=== PATIENT | female | born 1945 | race Caucasian/White ===

== ENCOUNTER 2018-04-15 10:25 | Inpatient (IN) | payer MEDICARE ==
[2018-04-15] MEDS ORDERED: DOPamine 400 MG/D5W 250 ML 250 ML ONE (10:34)
[2018-04-15] MEDS ORDERED: Fentanyl 100 MCG/2 ML VIAL ONE (10:38)
[2018-04-15] MEDS ORDERED: Lorazepam 2 MG/ML VIAL ONE (10:42)
[2018-04-15 11:00] LABS: #Basophils 0.1 thou/uL (0.0-0.2); #Lymphocytes 0.9 thou/uL (1.20-3.40); #Monocytes 0.3 thou/uL (0.11-0.59); %Basophils 0.5 % (0.0-1.0); %Eosinophils 0.2 % (0.0-10.0); %Lymphocytes 8.3 % (21.0-51.0); %Monocytes 2.2 % (0.0-10.0); %Neutrophils 88.8 % (42.0-75.0); Hemoglobin 14.2 g/dL (12.0-16.0); Mean Corpuscular HGB CONC 33.4 g/dL (32.0-36.0); Mean Corpuscular Hemoglobin 31.3 pg (27.0-31.0); Mean Corpuscular Volume 93.8 fL (78.0-98.0); Mean Platelet Volume 9.8 fL (7.4-10.4); Platelet Count 165 thou/uL (130-400); RBC Distribution Width 12.1 % (11.5-14.5); Red Blood Cell (RBC) Count 4.54 mill/uL (4.20-5.40); White Blood Cell (WBC) Count 11.2 thou/uL (4.8-10.8)
[2018-04-15 11:09] LABS: INR-International Normal Ratio 1.1; PTT 28.7 SEC (22.9-36.1); Prothrombin Time 14.3 SEC (12.0-14.7)
[2018-04-15 11:22] LABS: ALT (SGPT) 58 U/L (8-55); AST (SGOT) 43 U/L (5-34); Albumin 4.1 g/dL (3.4-4.8); Alkaline Phosphatase 122 U/L (40-150); Anion Gap 23 mmol/L (10-20); BUN (Urea Nitrogen) 29 mg/dL (9.8-20.1); Bilirubin, Total 0.5 mg/dL (0.2-1.2); Calc. Creatinine Clearance 0 mL/min (70-130); Calcium 10.2 mg/dL (7.8-10.44); Carbon Dioxide 16 mmol/L (23-31); Cardiac Risk 2.6 (Less than 4.5); Chloride 107 mmol/L (98-107); Cholesterol 119 mg/dl (< 200 Desired); Estimated GFR-MDRD 43; Globulin 3.1 g/dL (2.4-3.5); Glucose 242 mg/dL (83-110); HDL Cholesterol 46 mg/dL (>60 Neg Risk); LDL Cholesterol, Calculated 56 mg/dL; Protein, Total 7.2 g/dL (6.0-8.3); Sodium 141 mmol/L (136-145); Triglycerides 84 mg/dL (Less than 150)
[2018-04-15 11:37] LABS: CKMB 1.7 ng/mL (0-6.6)
--- NOTE | 2018-04-15 12:06 | RAD ---
PORTABLE CHEST 1 VIEW: Date: 04/15/18 Time: 1118 hours HISTORY: Heart block, bradycardia. FINDINGS: The heart size is borderline. The lungs are well expanded without focal areas of consolidation, pneum othorax, sharon pulmonary edema, or pleural effusions. IMPRESSION: No acute process. POS: ERNIEH
[2018-04-15] MEDS ORDERED: Ondansetron ODT 4 MG TAB SL PRN (12:47)
[2018-04-15] MEDS ORDERED: Acetaminophen 325 MG TAB PO PRN (12:47)
[2018-04-15] MEDS ORDERED: Ondansetron PF 4 MG/2 ML Vial IVP PRN ×2 (12:47→12:59)
[2018-04-15] MEDS ORDERED: HumaLOG 300 UNITS/3 ML VIAL SC PRN (12:59)
[2018-04-15] MEDS ORDERED: HYDROcodone/Acetaminophen 5/325 mg Tablet PO PRN (12:59)
[2018-04-15] MEDS ORDERED: Dextrose 5% in Water 1,000 ML IV PRN (12:59)
[2018-04-15] MEDS ORDERED: Bisacodyl 10 MG SUPP PR PRN (12:59)
[2018-04-15] MEDS ORDERED: Dextrose 50% Abboject 50 ML SYRINGE SLOW IVP PRN (12:59)
[2018-04-15] MEDS ORDERED: Zolpidem Tartrate 5 MG TAB PO PRN (12:59)
[2018-04-15 13:23] VITALS: BMI 27.1
--- NOTE | 2018-04-15 13:39 | CON ---
DATE OF CONSULTATION: HISTORY: Debby Garcia is a 72-year-old white female, who went to the [facility] emergency Room today with passing-out spells and seizures. 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 Vic Roberts. She also has history of hypertensive encephalopathy and intracranial left-sided ventricular hemorrhage in August of 2011 that was treated conservatively. She states she has never had any cardiac problems previously. She denied any chest pain or shortness of breath. Over the last several days, apparently, she has had passing-out spells and seizures. She went to the emergency room in [facility], was found to be in complete heart block with junctional escape rhythm with right bundle-branch block pattern. Heart rate was 25 per minute. She was transferred here, and is on a dopamine drip. In the emergency room, she apparently had an episode of asystole. Output was increased from the transcutaneous pacer. Currently, she is pacing around 60 per minute. PAST MEDICAL HISTORY: Hypertension, diabetes, hypercholesterolemia, and history of CVA. MEDICATIONS: Atorvastatin 40 daily, calcium citrate, carvedilol 12.5 mg b.i.d., levothyroxine 75 mcg daily, lisinopril 20 mg daily, magnesium, metformin 500 mg b.i.d., and sertraline 50 daily. ALLERGIES: NONE. OPERATIONS: Left carotid endarterectomy, left total knee replacement, appendectomy, cataract extraction, lumbar laminectomy, and oophorectomy. SOCIAL HISTORY: She stopped smoking many years ago. She does not drink. FAMILY HISTORY: Unremarkable for coronary artery disease. REVIEW OF SYSTEMS: A 12-point review of systems unremarkable. PHYSICAL EXAMINATION: VITAL SIGNS: Blood pressure 110/70, transcutaneously paced. HEENT: PERRL. NECK: Supple. CHEST: Clear. CARDIAC: S1 and S2 are normal. No murmurs. ABDOMEN: Normal bowel sounds without tenderness or organomegaly. EXTREMITIES: Revealed trace pretibial edema. NEUROLOGIC: Grossly intact. SKIN: Warm and dry. LABORATORY DATA: Laboratory from [facility] revealed hemoglobin 13.7, hematocrit 41.9, white count 11,700, and platelets 110,000. I do not see any electrolytes. IMPRESSION: 1. Complete heart block. 2. Episodes of syncope associated with seizure secondary to #1. 3. Atherosclerotic peripheral vascular disease, status post left carotid endarterectomy. 4. Hypertension. 5. Diabetes. 6. Hypercholesterolemia. 7. Distant smoker. PLAN: An attempt will be made to obtain the remainder of her lab work from [facility]. It was recommended that she have a temporary pacemaker placed. Risks of this were discussed with the patient including , bleeding, infection, blood clot formation, bleeding around the heart with tamponade, etc. With her episode of asystole, temporary pacemaker needs to be placed while further evaluation is ongoing to evaluate her left ventricular function and the possibility of myocardial infarction. Job ID: [id number] [facility]
[2018-04-15 13:48] LABS: Troponin I 0.102 ng/mL (< 0.028)
[2018-04-15] MEDS ORDERED: Prevnar 13-Val Conj/PF 0.5 ML SYRINGE IM ONE (14:00)
--- NOTE | 2018-04-15 14:41 | CCL ---
CARDIOLOGY PROCEDURE NOTE: Date: 04/15/18 PROCEDURE: Temporary pacemaker placement. INDICATION: Complete heart block, syncope, and seizures. PROCEDURE DETAILS: The patient was brought to the cardiac laborer tanbark and the right groin was prepped and draped in the usual fashion. 1% lidocaine was infiltrated. A 5 Samoan sheath was placed into the right femoral. A 5 Samoan balloon tipped pacing wire was inserted into the right ventricle. Threshold was less than 1.0 volts. Sensitivity was not tested due to her extreme bradycardia. This was sutured in place and the patient was transferred to the ICU. GEORGE
[2018-04-15 16:47] LABS: Troponin I 0.143 ng/mL (< 0.028)
--- NOTE | 2018-04-15 19:29 | HP ---
HISTORY OF PRESENT ILLNESS: Ms. Garcia is a 72-year-old woman. She came to this facility earlier today after she passed out. According to the patient, she had multiple episodes since yesterday and this morning, she also had multiple episodes of seizures. She came to the ER, she was evaluated. She was found to be in complete AV block. Cardiology was consulted and she is being admitted for management. She is a very poor informant at this time. She denies any previous history of kidney disease. PAST MEDICAL HISTORY: She has a history of hypertension, diabetes mellitus, cerebrovascular accident. PAST SURGICAL HISTORY: She had multiple surgeries, which she cannot mention at this time. ALLERGIES: SHE DOES NOT HAVE ANY KNOWN ALLERGY. SOCIAL HISTORY: She does not smoke, does not drink. FAMILY HISTORY: Her family history was reviewed and is noncontributory. REVIEW OF SYSTEMS: Remarkable for syncopal episode and also multiple episode of seizures. In detail, review of system cannot be obtained at this time. The patient cannot give information; however, she mentioned that she had diarrhea over the last few days. At the time of examination, there was no family member available. PHYSICAL EXAMINATION: GENERAL: At the current time, she is alert, responsive, and cooperative, in no acute distress. VITAL SIGNS: Her latest vital signs showed a temperature of 97.5, pulse rate 57, respiratory rate 16, blood pressure 161/60. An external pacemaker was placed. We have to mention that at the time of admission, her pulse rate was 37 and her blood pressure was low. HEENT: Head, normocephalic and atraumatic. Both of her pupils are equal and reactive. Ears and nose are normal. Oral mucosa is moist. Pharyngeal area is clear. NECK: Supple. There is no distention of the jugular vein. No lymphadenopathy felt. Thyroid gland not palpable. There is no carotid bruit. CHEST: Symmetrical, irregular. S1 and S2. LUNGS: Clear. ABDOMEN: Soft. Bowel sounds heard. We could not appreciate any organomegaly. There is no focal area of tenderness. LYMPH: Showed no edema. NEUROLOGICAL: She moves all extremities. LABORATORY STUDIES: CBC done earlier showed a WBC of 11.2, hemoglobin of 14.2, hematocrit of 42.6, MCV of 98.8, platelets of 165. Her PT was noticed to be 14.3, PTT 28.7. Chemistry and lytes show a sodium of 141, potassium of 5, chloride 107, CO2 of 16, BUN 29, creatinine 1.2, glucose 242, AST 43, ALT 58, alkaline phosphatase 122. Troponin was noticed to be 0.042. Total protein 7.2, albumin 4.1, globulin 3.1, triglyceride 84, cholesterol 119, LDL 56, HDL 46. TSH was noticed to be elevated at 9.5814. T4 not available at this time. ASSESSMENT: This is a 72-year-old woman with history of hypertension, diabetes mellitus, who was admitted with syncopal episode associated with multiple episodes of seizure, was found to have complete atrioventricular block. She is scheduled for temporary pacemaker placement internal. Regarding her seizure, it is possible that mostly likely way-out due to brain ischemia associated with heart block; however, this should be evaluated later. Neurology consult will be considered. TSH was noticed to be elevated. We will check a T4 level before starting thyroxine. The patient will be admitted to ICU. Further evaluation and management will depend on her course of the hospitalization and her response to therapy. Cardiology consult was called. Job ID: [id number]
--- NOTE | 2018-04-15 21:53 | CON ---
DATE OF CONSULTATION: NOTE: I discussed with Mrs. Garcia as well as her son by phone the results of the echocardiogram, which showed normal left ventricular function. It was recommended to undergo pacemaker placement tomorrow. Risks of pacemaker insertion were discussed including , infection, bleeding, blood clot formation, tamponade, pneumothorax, re-operation for lead dislodgement, etc. They understand and agreed to proceed. Job ID: [id number]
[2018-04-15] MEDS: Famotidine/PF 20 mg/2ml Vial SLOW IVP SCH (21:57)
[2018-04-15] MEDS: Atorvastatin Calcium 40 MG TAB PO SCH (21:57)
[2018-04-16] MEDS: Sodium Chloride 0.9% 1,000 ML IV SCH ×2 (02:12→18:50)
[2018-04-16 05:10] LABS: #Basophils 0.1 thou/uL (0.0-0.2); #Lymphocytes 1.5 thou/uL (1.20-3.40); #Monocytes 0.7 thou/uL (0.11-0.59); #Neutrophils 8.5 thou/uL (1.40-6.50); %Basophils 0.7 % (0.0-1.0); %Eosinophils 0.5 % (0.0-10.0); %Lymphocytes 13.6 % (21.0-51.0); %Monocytes 6.3 % (0.0-10.0); Hemoglobin 12.9 g/dL (12.0-16.0); Mean Corpuscular HGB CONC 33.3 g/dL (32.0-36.0); Mean Corpuscular Hemoglobin 30.9 pg (27.0-31.0); Mean Corpuscular Volume 92.9 fL (78.0-98.0); Platelet Count 161 thou/uL (130-400); RBC Distribution Width 12.2 % (11.5-14.5); Red Blood Cell (RBC) Count 4.18 mill/uL (4.20-5.40); White Blood Cell (WBC) Count 10.8 thou/uL (4.8-10.8)
[2018-04-16 05:27] LABS: Anion Gap 15 mmol/L (10-20); BUN (Urea Nitrogen) 19 mg/dL (9.8-20.1); Calc. Creatinine Clearance 65 mL/min (70-130); Calcium 8.9 mg/dL (7.8-10.44); Carbon Dioxide 21 mmol/L (23-31); Chloride 106 mmol/L (98-107); Estimated GFR-MDRD 64; Glucose 125 mg/dL (83-110); Potassium 3.6 mmol/L (3.5-5.1); Sodium 138 mmol/L (136-145)
[2018-04-16] MEDS: Famotidine/PF 20 mg/2ml Vial SLOW IVP SCH ×2 (08:39→20:53)
--- NOTE | 2018-04-16 09:24 | RAD ---
PORTABLE CHEST 1 VIEW: Date: 04/16/18 Time: 0523 hours HISTORY: Heart block, bradycardia. FINDINGS: Comparison made with exam from previous day. The heart size is normal. The aorta is tortuous. The lungs are well expanded without focal areas of c onsolidation, pneumothorax, sharon pulmonary edema, or pleural effusions. IMPRESSION: No acute process. POS: ERNIE
--- NOTE | 2018-04-16 11:40 | CON ---
DATE OF CONSULTATION: 04/16/2018 SERVICE: Pulmonary Medicine. REASON FOR CONSULTATION: ICU patient. HISTORY OF PRESENT ILLNESS: The patient is a 72-year-old white female with past medical history significant for essentially nothing. She presented to the hospital with a 1-day history of syncopal events that resulted in seizure-like activity. She had multiple of these events [id number]. She was brought to the Emergency Department, where she was discovered to have a complete heart block. Transvenous pacing was established. Since then, she had no additional events. Otherwise, there has been no interval change to her condition. She is on line for pacemaker at some point today. During that catheterization, she is also going to undergo cardiac catheterization to investigate the coronary calcifications. PAST MEDICAL HISTORY: 1. Type 2 diabetes mellitus. 2. Hypertension. 3. CVA. 4. History of complete heart block. PAST SURGICAL HISTORY: Unknown. SOCIAL HISTORY: Negative for alcohol, tobacco, or illicit drug use. She has no exposure to chemicals, dust, asbestos, or tuberculosis. FAMILY HISTORY: Noncontributory. ALLERGIES: NO KNOWN DRUG ALLERGIES. MEDICATIONS: List of her inpatient medications was reviewed. No specific updates were made at this time. REVIEW OF SYSTEMS: General, head, ears, eyes, nose, throat, cardiovascular, respiratory, GI, , musculoskeletal, neurologic, and skin is negative except as mentioned in the HPI. PHYSICAL EXAMINATION: VITAL SIGNS: Afebrile, pulse 84, blood pressure 164/75, respirations 15, saturation 98% on 1 L nasal cannula. GENERAL: The patient is awake and alert, in no apparent distress. LUNGS: Excellent air entry with no prolonged expiratory phase. Minimal dependent crackles are noted. There are no rhonchi or wheezing. HEART: Normal rate. Regular. She is 100% paced. : No [place]. NEUROLOGIC: Grossly nonfocal. MUSCULOSKELETAL: No cyanosis or clubbing. There is no pitting in the bilateral lower extremities. LABORATORY DATA: WBC 10.8, hemoglobin 12.9, and platelets 161,000. INR 1.1. Basic metabolic profile is unremarkable with a downtrending creatinine of 0.87. Troponin 0.143 and gently up-trending. Liver function studies include a minimally-elevated AST and ALT. Liver function studies are otherwise unremarkable. ASSESSMENT: 1. Acute hypoxic respiratory failure, minimal. 2. Complete heart block, status post transvenous pacing. 3. Acute kidney injury, resolving. 4. Spells characterized by movement disorder, likely seizures, resolved. 5. Acute heart failure, resolved. 6. [id number] myocardial infarction. DISCUSSION AND PLAN: The patient is going down for a cardiac catheterization and pacemaker placement. Pulmonary/Critical Care will continue to follow while the patient remains in this location. Once the pacemaker is placed, she will be a candidate for transition out of the ICU to the Telemetry unit, if Cardiology is okay with that. Pulmonary will continue to follow in this location. Job ID: [id number]
--- NOTE | 2018-04-16 12:56 | PDOC.PN ---
- Subjective Encounter Start Date: 04/16/18 Encounter Start Time: 12:55 Subjective: right lower leg discomfort with external pacemaker - Objective Resuscitation Status - Order Detail: 04/15/18 11:38 Resuscitation Status Routine Resuscitation Status: FULL: Full Resuscitation MAR Reviewed: Yes Vital Signs & Weight: Vital Signs (12 hours) Temp Pulse Ox 04/16/18 11:00 98.2 F 04/16/18 08:00 98 04/16/18 07:00 98.1 F 04/16/18 04:00 98.3 F Weight Weight 153 lb 3.54 oz Most Recent Monitor Data Heart Rate from ECG 81 NIBP 151/78 NIBP BP-Mean 102 Respiration from ECG 16 SpO2 98 I&O: 04/15/18 04/16/18 04/17/18 06:59 06:59 06:59 Intake Total 1249 Output Total 770 350 Balance 479 -350 Result Diagrams: 04/16/18 04:47 04/16/18 04:47 Additional Labs: Accuchecks 04/16/18 04/15/18 12:09 17:03 POC Glucose 126 H 119 H Phys Exam - Physical Examination HEENT: PERRLA, moist MMs, sclera anicteric, TM's clear, oral pharynx no lesions , 2+ tonsils Neck: no nodes, no JVD, supple, full ROM Respiratory: no wheezing, no rales Cardiovascular: RRR, no significant murmur, no rub Gastrointestinal: soft, non-tender, no distention, positive bowel sounds right groin with extrenal pacemaker Neurological: non-focal, normal sensation, moves all 4 limbs Psychiatric: normal affect, A&O x 3 Skin: no rash, normal turgor, cap refill <2 seconds Dx/Plan (1) Complete AV block Code(s): I44.2 - ATRIOVENTRICULAR BLOCK, COMPLETE Status: Acute Comment: patient with external pacemaker, going in for permanent pacemaker today (2) Diabetes Code(s): E11.9 - TYPE 2 DIABETES MELLITUS WITHOUT COMPLICATIONS Status: Acute Comment: NPO today, hold all home meds - Plan cont current plan of care, plan discussed w/ family * .
[2018-04-16] MEDS ORDERED: CEFAZOLIN 1 GM VIAL ONE (13:00)
[2018-04-16] MEDS ORDERED: Gentamicin 80 MG/2 ML VIAL ONE (13:00)
[2018-04-16] MEDS ORDERED: CEFAZOLIN 2 GM/50 ML BAG ONE (13:00)
[2018-04-16] MEDS ORDERED: Lidocaine 1% (PF) 30 ML VIAL ONE (16:05)
[2018-04-16] MEDS ORDERED: Midazolam HCl 2 mg/2 ml Vial ONE ×2 (16:05→17:07)
[2018-04-16] MEDS ORDERED: Fentanyl 100 MCG/2 ML VIAL ONE (16:05)
[2018-04-16] MEDS ORDERED: Lisinopril 10 MG TAB PO SCH (17:45)
[2018-04-16] MEDS ORDERED: Carvedilol 6.25 MG TAB PO SCH (18:30)
[2018-04-16] MEDS: Aspirin 81 mg Enteric Coated Tablet PO SCH (18:39)
[2018-04-16] MEDS: Cephalexin 250 MG CAP PO SCH (20:53)
[2018-04-16] MEDS: Atorvastatin Calcium 40 MG TAB PO SCH (20:53)
--- NOTE | 2018-04-16 21:05 | RAD ---
SINGLE VIEW OF THE CHEST: Comparison: 04-16-18 History: Status post pacemaker placement. FINDINGS: Single view of the chest shows a normal sized cardiomediastinal silhouette. A left subclavian pacemak er is seen with its leads in the right atrium and ventricles. There is no evidence of consolidation, mass, pneumothorax or pleural effusion. IMPRESSION: 1. No evidence of acute cardiopulmonary disease. 2. Status post pacemaker placement without evidence of complications. POS: MORGAN
[2018-04-16] MEDS: Acetaminophen 325 MG TAB PO PRN (22:36)
[2018-04-16 23:57] LABS: Troponin I 0.531 ng/mL (< 0.028)
[2018-04-17] MEDS ORDERED: Sodium Chloride 0.9% 500 ML IV SCH (02:00)
[2018-04-17] MEDS: Sodium Chloride 0.9% 1,000 ML IV SCH ×2 (02:33→14:21)
[2018-04-17 06:24] LABS: ALT (SGPT) 23 U/L (8-55); AST (SGOT) 16 U/L (5-34); Albumin 3.2 g/dL (3.4-4.8); Alkaline Phosphatase 85 U/L (40-150); Anion Gap 11 mmol/L (10-20); BUN (Urea Nitrogen) 14 mg/dL (9.8-20.1); Bilirubin, Total 0.7 mg/dL (0.2-1.2); Calc. Creatinine Clearance 56 mL/min (70-130); Calcium 8.4 mg/dL (7.8-10.44); Carbon Dioxide 25 mmol/L (23-31); Chloride 107 mmol/L (98-107); Estimated GFR-MDRD 57; Globulin 2.4 g/dL (2.4-3.5); Glucose 104 mg/dL (83-110); Potassium 3.6 mmol/L (3.5-5.1); Protein, Total 5.6 g/dL (6.0-8.3); Sodium 139 mmol/L (136-145)
[2018-04-17] MEDS ORDERED: Carvedilol 6.25 MG TAB PO SCH (08:00)
[2018-04-17] MEDS ORDERED: Lisinopril 20 MG TAB PO SCH (09:00)
[2018-04-17] MEDS: Cephalexin 250 MG CAP PO SCH ×3 (09:15→20:13)
[2018-04-17] MEDS: Aspirin 81 mg Enteric Coated Tablet PO SCH (09:15)
[2018-04-17] MEDS: Famotidine/PF 20 mg/2ml Vial SLOW IVP SCH ×2 (09:15→20:12)
[2018-04-17] MEDS: Carvedilol 6.25 MG TAB PO SCH (09:15)
[2018-04-17] MEDS: Acetaminophen 325 MG TAB PO PRN (09:28)
[2018-04-17] MEDS ORDERED: Sodium Chloride 0.9% 1,000 ML IV SCH (11:15)
--- NOTE | 2018-04-17 15:13 | CCL ---
CARDIOLOGY PROCEDURE NOTE: Date: 04/16/18 PROCEDURE: Permanent pacemaker placement. INDICATION: Complete heart block, syncope, and seizures. DETAILS: The patient was brought to the cardiac solder making laborer and the left subclavian area was prepped and draped. 1% lidocaine was infiltrated. A J-wire was placed into the left subclavian vein. Pacemaker pocket was manufactured using blunt and sharp dissection with electrocautery for hemostasis. An antibiotic solu tion-soaked gauze was placed into the pocket. Using a 9 Spanish sheath, the ventricular lead was inser nelida with the J-wire remaining in place. The sheath was peeled away. Then, a 7 Spanish sheath was used to place the atrial lead. The right ventricular lead was advanced to the RV apex and screwed into the apex. The right atrial lead was screwed into the right atrium. Ventricular Lead: R-wave 3.4 (paced), impedance 826, threshold 0.5. Right Atrial Lead: P-wave 5.9, impedance 662, threshold 1.6 volts. During the procedure, the patient received several doses of IV Versed and Fentanyl. She was extremely uncooperative during the procedure, frequently cussing at the staff, and moving her arms and legs. T he tabs on the suture tie-down were removed and both leads were secured in place with two sutures of 0 silk. The antibiotic solution soaked gauze was removed. Subcutaneous pocket was irrigated using commercial helicopter pilot ious amounts of antibiotic solution. Leads were attached to the pacemaker generator and this was plac ed into the pocket and secured in place with one suture of 0 silk. Incision was then closed using two layers of running 3-0 Vicryl and one layer of running 4-0 Vicryl. Dermabond was placed on the incisi on.
--- NOTE | 2018-04-17 16:56 | PRG ---
DATE OF SERVICE: 04/17/2018 SUBJECTIVE: Debby Garcia has no complaints. Her pacer is in place. OBJECTIVE: VITAL SIGNS: She is afebrile. Heart rate 68, respiratory rate is 18, blood pressure 102/54. She is on room air, oximetry is 98. LUNGS: Clear. HEART: Regular rhythm. ABDOMEN: Soft. Her pacemaker site is a little tender, but not erythematous. Electrolytes are normal today. Creatinine is 0.97. Intake and outputs negative 559. Chest radiograph showed no pneumothorax yesterday after pacemaker was placed. IMPRESSION: 1. Status post syncope triggered by bradycardia. She has a pacemaker in place. 2. History of diabetes. 3. History of hypertension. 4. History of cerebrovascular accident in the past. She appears to be stable at this point in time. Echocardiogram done 2 days ago shows normal systolic function, normal left ventricular function. I met with her son and answered all of his questions. Job ID: [id number]
[2018-04-17] MEDS: Atorvastatin Calcium 40 MG TAB PO SCH (20:12)
[2018-04-18] MEDS: Acetaminophen 325 MG TAB PO PRN (05:39)
--- NOTE | 2018-04-18 05:45 | PDOC.PN ---
- Subjective Encounter Start Date: 04/17/18 Encounter Start Time: 05:44 Subjective: Feeling weak and left arm pain with pacemaker insertion - Objective Resuscitation Status - Order Detail: 04/15/18 11:38 Resuscitation Status Routine Resuscitation Status: FULL: Full Resuscitation Vital Signs & Weight: Vital Signs (12 hours) Temp Pulse Resp BP Pulse Ox 04/18/18 04:00 99.3 F 70 20 171/78 H 96 04/18/18 00:00 98.0 F 76 18 181/76 H 97 04/17/18 20:00 98.5 F 71 16 177/84 H 95 Weight Weight 146 lb 1.6 oz Most Recent Monitor Data Heart Rate from ECG 80 NIBP 174/89 NIBP BP-Mean 117 Respiration from ECG 22 SpO2 96 I&O: 04/16/18 04/17/18 04/18/18 06:59 06:59 06:59 Intake Total 8594 267 0661 Output Total 770 1300 Balance 479 -223 6610 Result Diagrams: 04/16/18 04:47 04/17/18 05:24 Additional Labs: Accuchecks 04/17/18 04/17/18 04/17/18 20:35 17:05 11:53 POC Glucose 129 H 106 241 H 04/17/18 05:18 POC Glucose 98 Phys Exam - Physical Examination in distress HEENT: PERRLA, moist MMs, sclera anicteric, TM's clear, oral pharynx no lesions , 2+ tonsils Neck: no nodes, no JVD, supple, full ROM Respiratory: no wheezing, no rales Cardiovascular: RRR pacemaker insertion site, healing well Gastrointestinal: soft, non-tender, no distention, positive bowel sounds Musculoskeletal: no edema, pulses present Neurological: non-focal, normal sensation, moves all 4 limbs Psychiatric: normal affect, A&O x 3 Dx/Plan (1) Complete AV block Code(s): I44.2 - ATRIOVENTRICULAR BLOCK, COMPLETE Status: Acute Comment: S/ P permanent pacemaker today (2) Diabetes Code(s): E11.9 - TYPE 2 DIABETES MELLITUS WITHOUT COMPLICATIONS Status: Acute Comment: Continue home meds (3) Hypotension Status: Acute - Plan cont current plan of care, plan discussed w/ family, DVT proph w/SCDs Discharge once BP is more stable, hold or reduce medicines if required. * .
[2018-04-18 05:51] LABS: Anion Gap 12 mmol/L (10-20); BUN (Urea Nitrogen) 12 mg/dL (9.8-20.1); Calc. Creatinine Clearance 68 mL/min (70-130); Calcium 8.3 mg/dL (7.8-10.44); Carbon Dioxide 23 mmol/L (23-31); Chloride 110 mmol/L (98-107); Estimated GFR-MDRD 72; Glucose 118 mg/dL (83-110); Potassium 3.7 mmol/L (3.5-5.1); Sodium 141 mmol/L (136-145)
[2018-04-18] MEDS: Famotidine/PF 20 mg/2ml Vial SLOW IVP SCH (08:28)
[2018-04-18] MEDS: Aspirin 81 mg Enteric Coated Tablet PO SCH (08:28)
[2018-04-18] MEDS: Cephalexin 250 MG CAP PO SCH ×2 (08:28→15:35)
--- NOTE | 2018-04-18 08:35 | PDOC.PN ---
- Subjective Encounter Start Date: 04/18/18 Encounter Start Time: 09:00 Subjective: Patient feeling well. No CP, no SOB. Ready to go home. No more -: low BP episodes. - Objective Resuscitation Status - Order Detail: 04/15/18 11:38 Resuscitation Status Routine Resuscitation Status: FULL: Full Resuscitation MAR Reviewed: Yes Vital Signs & Weight: Vital Signs (12 hours) Temp Pulse Resp BP Pulse Ox 04/18/18 08:26 97.5 F L 74 18 176/81 H 97 04/18/18 04:00 99.3 F 70 20 171/78 H 96 04/18/18 00:00 98.0 F 76 18 181/76 H 97 Weight Weight 146 lb 1.6 oz Most Recent Monitor Data Heart Rate from ECG 80 NIBP 174/89 NIBP BP-Mean 117 Respiration from ECG 22 SpO2 96 I&O: 04/17/18 04/18/18 04/19/18 06:59 06:59 06:59 Intake Total 741 2570 Output Total 1300 Balance -559 2570 Result Diagrams: 04/16/18 04:47 04/18/18 05:20 Additional Labs: Accuchecks 04/18/18 04/17/18 04/17/18 05:29 20:35 17:05 POC Glucose 112 H 129 H 106 04/17/18 11:53 POC Glucose 241 H Phys Exam - Physical Examination Constitutional: NAD HEENT: moist MMs Respiratory: no wheezing, no rales, no rhonchi left chest surgical wound C/D/I Cardiovascular: RRR Gastrointestinal: soft, non-tender, positive bowel sounds Neurological: non-focal, moves all 4 limbs Psychiatric: normal affect, A&O x 3 Dx/Plan (1) Complete AV block Code(s): I44.2 - ATRIOVENTRICULAR BLOCK, COMPLETE Status: Acute Comment: S/ P permanent pacemaker (2) Hypotension Status: Resolved Comment: BP back up today after fluids, resuming BP meds (3) Diabetes Code(s): E11.9 - TYPE 2 DIABETES MELLITUS WITHOUT COMPLICATIONS Status: Chronic Comment: Continue home meds - Plan cont current plan of care * . - Discharge Day Encounter end time: 09:30
[2018-04-18] MEDS ORDERED: Lisinopril 20 MG TAB PO SCH (09:00)
[2018-04-18 15:28] VITALS: BP 182/85; TEMP 97.7
[2018-04-18] MEDS: Carvedilol 6.25 MG TAB PO SCH (16:18)
[2018-04-18] MEDS ORDERED: Famotidine 20 MG TAB PO SCH (21:00)
--- NOTE | 2018-04-19 04:03 | DIS ---
DATE OF ADMISSION: 04/15/2018 DATE OF DISCHARGE: 04/18/2018 PRIMARY CARE PHYSICIAN: Dr. Madan Lao. DIAGNOSES ON ADMISSION: 1. Syncopal episode. 2. Seizure. 3. Complete atrioventricular block. 4. Hypertension. 5. Diabetes mellitus. DIAGNOSES AT DISCHARGE: 1. Complete atrioventricular block, status post permanent pacemaker. 2. Diabetes mellitus. 3. Hypertension with hypotensive episodes. CONSULTATIONS: 1. Cardiology, Dr. Reis. 2. Pulmonology, Dr. Antoine. PROCEDURES: 1. Temporary pacemaker placement. 2. Permanent pacemaker placement. 3. Echocardiogram showing an ejection fraction of 60% to 65%. SUMMARY OF HOSPITAL COURSE: This is a 72-year-old white female who was admitted after she passed out and was noted to have multiple episodes of passing out, seizures the day prior to admission. In the ER, she was found to be in complete AV heart block. Cardiology was consulted, Dr. Reis. He did bring her back to the paint laboratory technician, put in a temporary pacemaker. She had an echocardiogram, which showed normal ejection fraction and after discussing the results and diagnoses, the patient was brought back to the paint laboratory technician and a permanent pacemaker was placed. She was watched in the ICU. She did have some labile blood pressures and at one point, the day before discharge, her blood pressures started dropping into the 90s systolic, but she still felt okay at that time. Her blood pressure medicines were held temporarily and she was given some IV fluids. Today, her blood pressure has come up and actually even in spite of giving her medicines, her blood pressures actually have been hypertensive, 150 to 180 systolic without symptoms. She is doing well without shortness of breath, no chest pain, is ambulating and is ready to go home. I discussed the patient with Dr. Reis and he is okay with her discharging home at this point. She will follow up with him in the office in 2 weeks. DISCHARGE MANAGEMENT: Disposition: Discharged home. Followup: With Dr. Reis in 2 weeks. Activity: As tolerated. Diet: Diabetic diet. MEDICATIONS: 1. Keflex 250 mg 3 times a day. 2. Coreg 12.5 mg twice a day. 3. Atorvastatin 40 mg at night. 4. . 5. Lisinopril 20 mg daily. 6. Zoloft 50 mg daily. 7. . 8. Calcium citrate and vitamin D 1 tablet daily. 9. Glucosamine daily. 10. Niferex tablet daily. 11. Levothyroxine 1 mcg daily. 12. Metformin 500 mg twice a day. 13. Multivitamin daily. 14. Magnesium 30 mg daily. Job ID: [id number]
== END 2018-04-18 18:00 | disposition home or self-care (01) | DRG 242 ==
LOC: ERS 10:25 → CCU 11:22 → CCL 11:22 → CCU 12:30 → 2NO 04-16 16:36
PROVIDERS: ADMIT Internal Medicine Cardiovascular Disease; ATTEND Internal Medicine Cardiovascular Disease
PROC: 5A1223Z Performance of Cardiac Pacing, Continuous (ICD-10-PCS; 2018-04-15)
PROC: 0JH604Z Insertion of Pacemaker, Single Chamber into Chest Subcutaneous Tissue and Fascia, Open Approach (ICD-10-PCS; principal; 2018-04-16)
PROC: 02HK3JZ Insertion of Pacemaker Lead into Right Ventricle, Percutaneous Approach (ICD-10-PCS; 2018-04-16)
PROC: 02H63JZ Insertion of Pacemaker Lead into Right Atrium, Percutaneous Approach (ICD-10-PCS; 2018-04-16)
DX: I44.2 Atrioventricular block, complete (principal); J96.01 Acute respiratory failure with hypoxia; N17.9 Acute kidney failure, unspecified; I10 Essential (primary) hypertension; E11.9 Type 2 diabetes mellitus without complications; R56.9 Unspecified convulsions; E78.00 Pure hypercholesterolemia, unspecified; Z86.73 Personal history of transient ischemic attack (TIA), and cerebral infarction without residual deficits; Z96.652 Presence of left artificial knee joint; Z79.84 Long term (current) use of oral hypoglycemic drugs; Z79.899 Other long term (current) drug therapy
CPT/HCPCS: 33210; 33249; 36415; 36416; 71045; 80048; 80053; 80061; 82553; 84439; 84443; 84484; 85025; 85610; 85730; 86850; 86900; 86901; 92950; 93005; 93010; 93306; 93798; 96365; 96375; 99152; 99153; C1769; C1785; C1898; J0690; J1265; J1580; J1644; J2001; J2060; J2250; J3010; S0028

== ENCOUNTER 2020-10-08 09:51 | Inpatient (IN) | payer MEDICARE ==
[2020-10-08 11:54] LABS: #Basophils 0.1 thou/uL (0.0-0.2); #Eosinphils 0.1 thou/uL (0.0-0.7); #Lymphocytes 2.2 thou/uL (1.20-3.40); #Monocytes 0.4 thou/uL (0.11-0.59); #Neutrophils 3.9 thou/uL (1.40-6.50); %Basophils 1.2 % (0.0-1.0); %Eosinophils 1.5 % (0.0-10.0); %Lymphocytes 33.2 % (21.0-51.0); %Neutrophils 58.1 % (42.0-75.0); Hemoglobin 14.9 g/dL (12.0-16.0); Mean Corpuscular HGB CONC 32.8 g/dL (32.0-36.0); Mean Corpuscular Hemoglobin 31.1 pg (27.0-31.0); Mean Corpuscular Volume 94.7 fL (78.0-98.0); Mean Platelet Volume 8.2 fL (7.4-10.4); Platelet Count 167 thou/uL (130-400); RBC Distribution Width 11.5 % (11.5-14.5); Red Blood Cell (RBC) Count 4.79 mill/uL (4.20-5.40); White Blood Cell (WBC) Count 6.7 thou/uL (4.8-10.8)
[2020-10-08 12:16] LABS: Anion Gap 17 mmol/L (10-20); BUN (Urea Nitrogen) 19 mg/dL (9.8-20.1); Bilirubin, Total 0.4 mg/dL (0.2-1.2); Calc. Creatinine Clearance 0 mL/min (70-130); Calcium 9.3 mg/dL (7.8-10.44); Carbon Dioxide 21 mmol/L (23-31); Chloride 107 mmol/L (98-107); Glucose 100 mg/dL (83-110); Potassium 4.4 mmol/L (3.5-5.1); Sodium 141 mmol/L (136-145)
[2020-10-08 12:17] LABS: ALT (SGPT) 16 U/L (8-55); AST (SGOT) 20 U/L (5-34); Alkaline Phosphatase 92 U/L (40-110)
[2020-10-08 12:20] LABS: Troponin I Less than 0.010 ng/mL (< 0.028)
[2020-10-08 14:44] LABS: Bilirubin Negative (Negative); Blood, Urine Negative (Negative); Clarity Clear (Clear); Glucose, Urine (Dipstick) Normal (Negative); Ketone, Urine Negative (Negative); Leukocyte Negative Leu/uL (Negative); Nitrite Negative (Negative); Protein, Urine (Dipstick) Negative (Neg-Trace); Specific Gravity, Urine 1.014 (1.002-1.036); Urobilinogen Normal mg/dL (Less than 2)
[2020-10-08] MEDS ORDERED: Enoxaparin Sodium 30 MG/0.3 ML SYRINGE SC SCH (16:30)
[2020-10-08] MEDS: Sodium Chloride 0.9% 1,000 ML IV SCH (19:30)
[2020-10-08 20:09] VITALS: BMI 23.9
[2020-10-08] MEDS: Carvedilol 6.25 MG TAB PO SCH (20:38)
[2020-10-08] MEDS ORDERED: Atorvastatin Calcium 40 MG TAB PO SCH (21:00)
[2020-10-09] MEDS: Sodium Chloride 0.9% 1,000 ML IV SCH ×3 (05:00→16:23)
[2020-10-09] MEDS: Levothyroxine Sodium 75 MCG TAB PO SCH (05:34)
[2020-10-09 05:38] LABS: Cardiac Risk 2.6 (Less than 4.5)
[2020-10-09] MEDS: Lisinopril 20 MG TAB PO SCH (08:19)
[2020-10-09] MEDS: Atorvastatin Calcium 40 MG TAB PO SCH (08:19)
[2020-10-09] MEDS: Aspirin 81 mg Enteric Coated Tablet PO SCH (08:19)
[2020-10-09] MEDS: Carvedilol 6.25 MG TAB PO SCH ×2 (08:20→20:50)
[2020-10-09] MEDS: Enoxaparin Sodium 30 MG/0.3 ML SYRINGE SC SCH (08:25)
[2020-10-10] MEDS: Levothyroxine Sodium 75 MCG TAB PO SCH (05:40)
[2020-10-10] MEDS: Sodium Chloride 0.9% 1,000 ML IV SCH (05:40)
[2020-10-10 06:03] LABS: Anion Gap 9 mmol/L (10-20); BUN (Urea Nitrogen) 12 mg/dL (9.8-20.1); Calc. Creatinine Clearance 61 mL/min (70-130); Calcium 8.3 mg/dL (7.8-10.44); Carbon Dioxide 23 mmol/L (23-31); Chloride 113 mmol/L (98-107); Glucose 104 mg/dL (83-110); Potassium 3.9 mmol/L (3.5-5.1); Sodium 141 mmol/L (136-145)
[2020-10-10] MEDS: Enoxaparin Sodium 30 MG/0.3 ML SYRINGE SC SCH (09:06)
[2020-10-10] MEDS: Carvedilol 6.25 MG TAB PO SCH (09:06)
[2020-10-10] MEDS: Atorvastatin Calcium 40 MG TAB PO SCH (09:06)
[2020-10-10] MEDS: Aspirin 81 mg Enteric Coated Tablet PO SCH (09:06)
[2020-10-10] MEDS: Lisinopril 20 MG TAB PO SCH (09:07)
[2020-10-10 11:29] VITALS: BP 124/62; TEMP 98.4
== END 2020-10-10 14:47 | disposition home or self-care (01) | DRG 69 ==
LOC: ERS 09:51 → 2SE 16:21 → OBSVTOIN 10-09 14:44
PROVIDERS: ADMIT Internal Medicine; ATTEND Internal Medicine
DX: G45.9 Transient cerebral ischemic attack, unspecified (principal); G40.909 Epilepsy, unspecified, not intractable, without status epilepticus; I10 Essential (primary) hypertension; Z23 Encounter for immunization; E78.5 Hyperlipidemia, unspecified; R19.7 Diarrhea, unspecified; F03.90 Unspecified dementia, unspecified severity, without behavioral disturbance, psychotic disturbance, mood disturbance, and anxiety; R73.03 Prediabetes; Z86.73 Personal history of transient ischemic attack (TIA), and cerebral infarction without residual deficits; Z95.0 Presence of cardiac pacemaker; Z83.3 Family history of diabetes mellitus; Z79.899 Other long term (current) drug therapy; Z79.82 Long term (current) use of aspirin; Z79.890 Hormone replacement therapy; Z79.84 Long term (current) use of oral hypoglycemic drugs
CPT/HCPCS: 36415; 36416; 70450; 71045; 80048; 80053; 80061; 81003; 83880; 84484; 85025; 90471; 90732; 93005; 93306; 93880; 95712; 95819; 95957; 96372; G0009; G0378; J1650